=== PATIENT | female | born 1955 | race Asian ===

== ENCOUNTER 2018-04-02 11:52 | Emergency (ER) | payer OTHER ==
[2018-04-02 12:11] VITALS: BP 122/84
--- NOTE | 2018-04-02 12:21 | ER Report ---
History and Physical Time Seen By MD: 12:21 Hx. of Stated Complaint: RIGHT EYE AND EAR PAIN HPI/ROS CHIEF COMPLAINT: Right eye pain, right ear pain HISTORY OF PRESENT ILLNESS: 62-year-old female patient presents to emergency room with complaint of right eye and right ear pain. Patient states that she has had this discomfort for 2 weeks. She states that she's not had any changes in her vision. She denies having any fevers or chills. She denies having any sinus congestion. Patient states that the right ear does feel painful and does have a beeping sound in the ER. Patient has not taken any medication for this and has not seen anybody. Patient denies having any current medications. REVIEW OF SYSTEMS: Respiratory: No cough, no dyspnea. Cardiovascular: No chest pain, no palpitations. Gastrointestinal: No vomiting, no abdominal pain. Musculoskeletal: No back pain. Allergies: Coded Allergies: No Known Drug Allergies (Unverified , 04/02/18) Home Meds Active Scripts Tobramycin (TOBREX) 5 Ml Drops, 2 GTT OP QID, #1 BOTTLE Prov:SUHAS KIM 04/02/18 Amoxicillin/Pot Clav 875-125 Mg Tab (AUGMENTIN 875-125 TABLET) 1 Each Tablet, 1 TAB PO Q12H, #14 TAB Prov:SUHAS KIM 04/02/18 Past Medical/Surgical History Patient has a past medical history of irregular heartbeat. Patient has a surgical history of an ablation Reviewed Nurses Notes: Yes Constitutional Vital Sign - Last 24 Hours 04/02/18 04/02/18 04/02/18 04/02/18 12:08 12:11 12:11 12:22 Temp 97.4 Pulse 77 65 Resp 12 B/P (MAP) 132/112 (119) 122/84 (97) Pulse Ox 93 91 O2 Delivery Room Air 04/02/18 12:52 Pulse 63 Physical Exam General Appearance: The patient is alert, has no immediate need for airway protection and no current signs of toxicity. Eyes: Conjunctiva is injected, does have clear drainage. Posterior aspects were intact. I exam was done and patient was 20/50 in the right eye, 20/100 in the left eye and 20/40 with both eyes. ENT: Tympanic membranes are pearly-damian, auditory canals are patent, right tympanic membrane does appear to be retracted. Patient has significant sinus drainage in the right nare. Respiratory: Chest is non tender, lungs are clear to auscultation. Cardiac: regular rate and rhythm Gastrointestinal: Abdomen is soft and non tender, no masses, bowel sounds normal. Musculoskeletal: Neck: Neck is supple and non tender. Extremities have full range of motion and are non tender. Skin: No rashes or lesions. DIFFERENTIAL DIAGNOSIS: After history and physical exam differential diagnosis was considered for [ ] Medical Decision Making ED Course/Re-evaluation ED Course Patient was admitted to an exam room, history and physical were obtained. Differential diagnoses were considered. On examination lungs are clear, heart is regular, abdomen is soft and nontender. The right eye did appear to be injected. The right ear the tympanic membrane is pearly-damian, though slightly retracted. A fluorescein exam was done on both eyes which were negative. There are no signs of abrasions bilaterally. An IV exam was done, patient was 2050 in the right eye, 20/100 in the left eye and 20/40 together. Looking into the right nostril I did see if that the patient was having significant amounts of drainage. With this going on for the past 2 weeks and blew that she may be having a sinusitis which is causing her symptoms. We will go ahead and place her on Augmentin as well as Tobrex for her eye. She is follow-up with either DrAndrew this week, as she does have significant spurs to between the eyes. She is return to emergency room if condition worsens. Patient and her verbalized understanding and agreement with plan. Decision to Disposition Date: Apr 02, 2018 Decision to Disposition Time: 12:53 Depart Departure Latest Vital Signs Vital Signs Date Time Temp Pulse Resp B/P (MAP) Pulse Ox O2 Delivery O2 Flow Rate FiO2 04/02/18 12:52 63 04/02/18 12:22 91 04/02/18 12:11 97.4 12 Room Air 04/02/18 12:11 122/84 (97) Impression: Primary Impression: Sinusitis Additional Impression: Conjunctivitis Condition: Improved Disposition: HOME OR SELF-CARE Referrals: PASCUAL KINCAID MD (PCP) New Scripts Tobramycin (TOBREX) 5 Ml Drops 2 GTT OP QID, #1 BOTTLE Prov: JUDYSUHAS [employer] OCCUPATIONAL THERAPIST 04/02/18 Amoxicillin/Pot Clav 875-125 Mg Tab (AUGMENTIN 875-125 TABLET) 1 Each Tablet 1 TAB PO Q12H, #14 TAB Prov: SUHAS KIM 04/02/18 Patient Instructions: Sinusitis (ED) Additional Instructions: Increase fluid intake. Take the medications as directed. Follow up with your eye doctor this week. Return to the ER if condition worsens. Limit activity by pain. You may take an over the counter decongestant (Sudafed) to help with the ear pressure and pain. Problem Qualifiers Primary Impression: Sinusitis Sinusitis location: frontal Chronicity: acute Recurrence: non-recurrent Qualified Codes: J01.10 - Acute frontal sinusitis, unspecified Additional Impression: Conjunctivitis Conjunctivitis type: acute Acute conjunctivitis type: bacterial Laterality: right Qualified Codes: H10.31 - Unspecified acute conjunctivitis, right eye SUHAS KIM Apr 02, 2018 12:21
[2018-04-02] MEDS ORDERED: PROPARACAI/FLUORESCEIN 5 ML OP DROPS OU ONE (12:35)
[2018-04-02] MEDS ORDERED: FLUORESCEIN SOD 1 MG 1 EA STRP ONE (12:41)
[2018-04-02] MEDS ORDERED: TOBR5DRO43 OP (12:51)
[2018-04-02] MEDS ORDERED: AMOX-559 PO (12:51)
== END 2018-04-02 13:03 | disposition home or self-care (01) ==
LOC: ER 11:56
DX: J01.10 Acute frontal sinusitis, unspecified (principal); H10.31 Unspecified acute conjunctivitis, right eye
CPT/HCPCS: 99282